=== PATIENT | female | born 1965 | race Caucasian/White ===

== ENCOUNTER 2016-10-09 08:28 | Inpatient (IN) | payer BC ==
[~2016-10-09] VITALS: Ht 165.1 cm; Wt 85.2 kg
[~2016-10-09 08:28] MED LIST: ZANTAC150 MG PO; ZOFRAN4 MG PO
[2016-10-09] MEDS ORDERED: PEPCID20 MG PO (08:37)
[2016-10-09] MEDS ORDERED: DAILY VALUE1 EACH PO (08:37)
[2016-10-09 09:02] LABS: ADD MIUA? YES; BILIRUBIN NEGATIVE; BLOOD NEGATIVE; COLOR AMBER ((YELLOW)); GLUCOSE (STRIP) NEGATIVE; KETONES 20; LEUKOCYTES TRACE; NITRITE NEGATIVE; PROTEIN (STRIP) NEGATIVE; SPECIFIC GRAVITY 1.025 (1.000-1.030); UROBILINOGEN 0.2 MG/DL (0.2-1.0)
[2016-10-09 09:12] LABS: BACTERIA RARE /HPF; EPITHELIAL CELLS 1+ /HPF; MUCUS 1+ /LPF; WHITE BLOOD CELLS 0-5 /HPF (0-5)
[2016-10-09 09:27] LABS: HEMATOCRIT 38.5 % (36.0-46.0); MCH 30.2 PG (29.0-34.0); MCHC 32.7 G/DL (30.0-36.0); MCV 92.3 FL (83-99); MEAN PLAT.VOLUME 11.2 uM^3 (9.5-12.4); PLATELET COUNT 220 K/uL (156-360); RBC DIS.WIDTH-SD 39.5 % (39-53); RED BLOOD COUNT 4.17 M/uL (3.80-5.20); WHITE BLOOD COUNT 9.7 K/uL (4.1-10.2)
[2016-10-09 09:41] LABS: CHLORIDE 102 mEq/L (99-109); POTASSIUM 4.1 mEq/L (3.7-5.4); SODIUM 136 mEq/L (136-147)
[2016-10-09 09:43] LABS: GLUCOSE 101 mg/dL (70-99)
[2016-10-09 09:44] LABS: ANION GAP 10 MEQ/L (2-14)
[2016-10-09 09:45] LABS: TOTAL BILIRUBIN 1.2 mg/dL (0.0-1.0)
[2016-10-09 09:46] LABS: ALKALINE PHOSPHATASE 141 IU/L (3-129)
[2016-10-09 09:47] LABS: GFR ESTIMATE (CALCULATED) > 59 mL/min/
[2016-10-09 09:48] LABS: UREA NITROGEN (BUN) 13 mg/dL (9-23)
[2016-10-09 09:49] LABS: TROP-I INTERPRETATION NEGATIVE; TROPONIN-I < 0.01 ng/mL (0.0-0.30)
[2016-10-09 09:50] LABS: LIPASE 22 U/L (1.0-51.0)
[2016-10-09] MEDS ORDERED: PEPTO BISMOL240 ML PO (11:37)
[2016-10-09] MEDS ORDERED: TUMS500 MG PO (11:37)
[2016-10-09 16:06] VITALS: BP 122/66
[2016-10-09 19:03] VITALS: BP 92/53
[2016-10-10 00:16] VITALS: BP 100/55
[2016-10-10 03:20] VITALS: BP 137/63
[2016-10-10 07:03] LABS: HEMATOCRIT 34.4 % (36.0-46.0); MCH 30.3 PG (29.0-34.0); MCHC 31.4 G/DL (30.0-36.0); MEAN PLAT.VOLUME 11.4 uM^3 (9.5-12.4); PLATELET COUNT 187 K/uL (156-360); RBC DIS.WIDTH-SD 42.4 % (39-53); RED BLOOD COUNT 3.57 M/uL (3.80-5.20); WHITE BLOOD COUNT 7.3 K/uL (4.1-10.2)
[2016-10-10 07:11] LABS: MCV 96.4 FL (83-99)
[2016-10-10 07:22] VITALS: BP 135/69
[2016-10-10 07:28] LABS: ANION GAP 7 MEQ/L (2-14); CHLORIDE 101 MEQ/L (99-109); GFR ESTIMATE (CALCULATED) > 59 mL/min/; GLUCOSE 119 mg/dL (70-99); POTASSIUM 4.2 MEQ/L (3.7-5.4); SAMPLE HEMOLYSIS CHECK 0; SAMPLE ICTERIC CHECK 0; SAMPLE LIPEMIA CHECK 0; SODIUM 135 MEQ/L (136-147); UREA NITROGEN (BUN) 5 mg/dL (9-23)
[2016-10-10 15:43] VITALS: BP 101/57
[2016-10-10 19:15] VITALS: BP 108/53
[2016-10-10 23:00] VITALS: BP 107/57
[2016-10-11 03:20] VITALS: BP 116/58
[2016-10-11 05:57] LABS: HEMATOCRIT 32.9 % (36.0-46.0); MCHC 31.6 G/DL (30.0-36.0); MCV 94.8 FL (83-99); MEAN PLAT.VOLUME 11.9 uM^3 (9.5-12.4); PLATELET COUNT 219 K/uL (156-360); RBC DIS.WIDTH-CV 11.9 % (11.8-14.6); RBC DIS.WIDTH-SD 41.4 % (39-53); RED BLOOD COUNT 3.47 M/uL (3.80-5.20); WHITE BLOOD COUNT 6.6 K/uL (4.1-10.2)
[2016-10-11 06:28] LABS: ANION GAP 6 MEQ/L (2-14); CHLORIDE 100 MEQ/L (99-109); GFR ESTIMATE (CALCULATED) > 59 mL/min/; GLUCOSE 110 mg/dL (70-99); SAMPLE HEMOLYSIS CHECK 1; SAMPLE ICTERIC CHECK 0; SAMPLE LIPEMIA CHECK 0; SODIUM 135 MEQ/L (136-147); UREA NITROGEN (BUN) 3 mg/dL (9-23)
[2016-10-11 06:38] LABS: POTASSIUM 4.3 MEQ/L (3.7-5.4)
[2016-10-11 08:07] VITALS: BP 107/84
[2016-10-11 15:56] VITALS: BP 108/52
[2016-10-11 19:18] VITALS: BP 112/57
[2016-10-11 22:59] VITALS: BP 116/69
[2016-10-12 03:40] VITALS: BP 119/67
[2016-10-12 07:11] LABS: ANION GAP 6 MEQ/L (2-14); CHLORIDE 100 MEQ/L (99-109); GFR ESTIMATE (CALCULATED) > 59 mL/min/; GLUCOSE 117 mg/dL (70-99); POTASSIUM 4.4 MEQ/L (3.7-5.4); SAMPLE HEMOLYSIS CHECK 0; SAMPLE ICTERIC CHECK 0; SAMPLE LIPEMIA CHECK 0; SODIUM 137 MEQ/L (136-147); UREA NITROGEN (BUN) 3 mg/dL (9-23)
[2016-10-12 07:33] VITALS: BP 107/84
[2016-10-12 07:47] LABS: HEMATOCRIT 30.2 % (36.0-46.0); MCHC 31.5 G/DL (30.0-36.0); MCV 95.3 FL (83-99); MEAN PLAT.VOLUME 12.3 uM^3 (9.5-12.4); PLATELET COUNT 203 K/uL (156-360); RBC DIS.WIDTH-CV 11.8 % (11.8-14.6); RBC DIS.WIDTH-SD 40.8 % (39-53); RED BLOOD COUNT 3.17 M/uL (3.80-5.20); WHITE BLOOD COUNT 5.5 K/uL (4.1-10.2)
[2016-10-12 11:25] VITALS: BP 131/65
[2016-10-12 15:33] VITALS: BP 135/79
[2016-10-12 19:57] VITALS: BP 130/72
[2016-10-12 23:42] VITALS: BP 107/65
[2016-10-13 06:48] LABS: HEMATOCRIT 32.9 % (36.0-46.0); MCH 30.1 PG (29.0-34.0); MCHC 32.2 G/DL (30.0-36.0); MCV 93.5 FL (83-99); MEAN PLAT.VOLUME 11.8 uM^3 (9.5-12.4); PLATELET COUNT 252 K/uL (156-360); RBC DIS.WIDTH-CV 11.9 % (11.8-14.6); RBC DIS.WIDTH-SD 40.6 % (39-53); RED BLOOD COUNT 3.52 M/uL (3.80-5.20); WHITE BLOOD COUNT 4.3 K/uL (4.1-10.2)
[2016-10-13 07:25] LABS: ANION GAP 10 MEQ/L (2-14); CHLORIDE 101 MEQ/L (99-109); GFR ESTIMATE (CALCULATED) > 59 mL/min/; GLUCOSE 97 mg/dL (70-99); POTASSIUM 4.5 MEQ/L (3.7-5.4); SAMPLE HEMOLYSIS CHECK 0; SAMPLE ICTERIC CHECK 0; SAMPLE LIPEMIA CHECK 0; SODIUM 139 MEQ/L (136-147); UREA NITROGEN (BUN) 7 mg/dL (9-23)
[2016-10-13 07:53] VITALS: BP 107/63
[2016-10-13] MEDS ORDERED: OXYCODONE HCL5 MG PO (12:17)
[2016-10-13] MEDS ORDERED: BACTRIM,SEPT1 TABLET PO (12:17)
== END 2016-10-13 13:41 | disposition home or self-care (01) | DRG 331 ==
LOC: EME 08:28 → EDOF 12:56 → EME 12:56 → SDC 13:20 → 2SOUTH 14:43 → 5EAST 14:43
PROVIDERS: Nurse Practitioner Family; Surgery
DX: K35.3 Acute appendicitis with localized peritonitis (principal); K66.0 Peritoneal adhesions (postprocedural) (postinfection); R74.0 Nonspecific elevation of levels of transaminase and lactic acid dehydrogenase [LDH]; R74.8 Abnormal levels of other serum enzymes; K21.9 Gastro-esophageal reflux disease without esophagitis; E66.9 Obesity, unspecified; Z68.31 Body mass index [BMI] 31.0-31.9, adult; Z88.1 Allergy status to other antibiotic agents
CPT/HCPCS: 74177; 80048; 80053; 81003; 83605; 83690; 84484; 85027; 87070; 87075; 87205; 88304; 93005; 99281; 99285; J0330; J1170; J1335; J1650; J1885; J2175; J2250; J2405; J3010; J3480; J7040; J7120; S0020

== ENCOUNTER 2016-11-15 19:37 | Emergency (ER) | payer BC ==
[~2016-11-15] VITALS: Ht 165.1 cm; Wt 85.8 kg
[~2016-11-15 19:37] MED LIST changes: +BACTRIM,SEPT1 TABLET PO; +DAILY VALUE1 EACH PO; +OXYCODONE HCL5 MG PO; +PEPCID20 MG PO; +PEPTO BISMOL240 ML PO; +TUMS500 MG PO
[2016-11-15 20:41] LABS: HEMATOCRIT 35.6 % (36.0-46.0); MCH 30.1 PG (29.0-34.0); MCHC 32.6 G/DL (30.0-36.0); MCV 92.5 FL (83-99); PLATELET COUNT 264 K/uL (156-360); RBC DIS.WIDTH-CV 12.8 % (11.8-14.6); RBC DIS.WIDTH-SD 43.1 % (39-53); RED BLOOD COUNT 3.85 M/uL (3.80-5.20); WHITE BLOOD COUNT 6.3 K/uL (4.1-10.2)
[2016-11-15 20:52] LABS: CHLORIDE 104 mEq/L (99-109); POTASSIUM 4.4 mEq/L (3.7-5.4); SODIUM 138 mEq/L (136-147)
[2016-11-15 20:54] LABS: GLUCOSE 99 mg/dL (70-99)
[2016-11-15 20:55] LABS: ANION GAP 10 MEQ/L (2-14)
[2016-11-15 20:56] LABS: TOTAL BILIRUBIN 0.2 mg/dL (0.0-1.0)
[2016-11-15 20:57] LABS: ALKALINE PHOSPHATASE 107 IU/L (3-129)
[2016-11-15 20:58] LABS: GFR ESTIMATE (CALCULATED) > 59 mL/min/
[2016-11-15 20:59] LABS: UREA NITROGEN (BUN) 21 mg/dL (9-23)
[2016-11-15] MEDS ORDERED: MIRALAX255 GM PO (21:33)
[2016-11-15] MEDS ORDERED: ANUSOL HC,ANUCO25 MG PR (21:33)
[2016-11-15 21:54] VITALS: BP 121/77
[2016-11-17 15:04] LABS: POC NON-PRINT COM 1 ND
== END 2016-11-15 21:58 | disposition home or self-care (01) ==
LOC: EME 19:37 → RME 19:37
PROVIDERS: Physician Assistant
DX: K62.5 Hemorrhage of anus and rectum (principal); K64.9 Unspecified hemorrhoids; K59.00 Constipation, unspecified; D64.9 Anemia, unspecified
CPT/HCPCS: 80053; 82272; 83605; 85027; 99281; 99284; J7030